=== PATIENT | male | born 1960 | race Caucasian/White ===

== ENCOUNTER 2020-04-26 13:00 | Outpatient (REF) | payer OTHER, SELFPAY ==
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
== END 2020-04-26 13:01 | disposition home or self-care (01) ==
LOC: HO.HAP 13:00
PROVIDERS: PCP Internal Medicine; Referring Provider Internal Medicine; Visit Provider Internal Medicine
DX: H90.A11 Conductive hearing loss, unilateral, right ear with restricted hearing on the contralateral side (principal); H69.93 Unspecified Eustachian tube disorder, bilateral
CPT/HCPCS: 92590; V5275

== ENCOUNTER 2020-04-28 11:31 | Outpatient (REF) | payer OTHER, SELFPAY | END 2020-04-28 11:32 | disposition home or self-care (01) | LOC: HO.LAB 11:31 | PROVIDERS: Visit Provider Internal Medicine | DX: Z20.828 Contact with and (suspected) exposure to other viral communicable diseases (principal) | CPT/HCPCS: C9803; U0003 ==

== ENCOUNTER 2020-05-27 14:33 | Outpatient (REF) | payer OTHER, SELFPAY | END 2020-05-27 14:34 | disposition home or self-care (01) | LOC: HO.HAP 14:33 | PROVIDERS: Visit Provider Internal Medicine | DX: Z46.1 Encounter for fitting and adjustment of hearing aid (principal); H90.3 Sensorineural hearing loss, bilateral | CPT/HCPCS: V5011; V5020; V5241; V5256 ==

== ENCOUNTER 2020-07-28 14:10 | Outpatient (REF) | payer OTHER, SELFPAY | END 2020-07-28 14:11 | disposition home or self-care (01) | LOC: HO.LNP 14:10 | PROVIDERS: Visit Provider Hospitalist | DX: R30.0 Dysuria (principal) | CPT/HCPCS: 87086; 87147 ==

== ENCOUNTER 2020-10-18 12:00 | Outpatient (RCR) | payer OTHER, SELFPAY ==
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
--- NOTE | 2020-10-25 14:54 | MHC.PT.DC ---
[facility] [place] Office [place] Office [address] Zuri Garcia 140 [facility] [phone] F: [phone] F: [phone] F: [phone] F: [phone] Physical Therapy Discharge Report Diagnosis: Pain in the left hip and bilateral knees and lower back Date of Surgery: Date of Evaluation: 08/16/20 Date of Discharge: 10/25/20 Treatments to Date: 8 Cancellations to Date: 1 No Shows to Date: 0 Discharge Status: Improved Function Independent with HEP Discharge Summary: Pt demonstrates compliance and understanding of HEP through teach back and completing exercise without cuing. Pt able to complete HEP without increase in pain/symptoms. Electronically signed by: Bonnie Macedo PT Please sign and return to therapist. Thank you for your referral.
== END 2020-10-25 14:54 | disposition home or self-care (01) ==
LOC: HO.PT 12:00
PROVIDERS: PCP Internal Medicine; Visit Provider Internal Medicine
DX: M25.561 Pain in right knee (principal); M25.551 Pain in right hip; M25.552 Pain in left hip
CPT/HCPCS: 97110; 97112; 97140; 97162; 97530

== ENCOUNTER 2021-05-08 10:54 | Outpatient (REF) | payer OTHER, SELFPAY ==
--- NOTE | ~2021-05-08 | XR_ITS ---
EXAMINATION: XR ELBOW, LEFT CLINICAL INFORMATION: Pain left elbow COMPARISON: None TECHNIQUE: AP, lateral, and oblique views of the left elbow. FINDINGS: There is a small olecranon spur and borderline lateral epicondylar spur. Tiny spur also noted from the coronoid process. There is no joint narrowing or erosive change. No capsular effusion, fracture, dislocation, or destructive process. XR/XR elbow LT 2V IMPRESSION: 1. Small olecranon spur. 2. Borderline spurring lateral epicondyle and coronoid process.
--- NOTE | ~2021-05-08 | XR_ITS ---
EXAMINATION: XR KNEE, RIGHT CLINICAL INFORMATION: Pain COMPARISON: Radiographs right femur 03/08/2020 TECHNIQUE: Four views of the right knee. FINDINGS: No fracture, dislocation, destructive process. No joint narrowing or erosive change or chondrocalcinosis. No suprapatellar effusion. Bony mineralization normal. Axial view patella shows no lateralization or tilting. XR/XR knee RT 3V IMPRESSION: Unremarkable right knee.
== END 2021-05-08 10:55 | disposition home or self-care (01) ==
LOC: HO.XRAY 10:54
PROVIDERS: Visit Provider Nurse Practitioner Family
DX: M25.522 Pain in left elbow (principal); M25.561 Pain in right knee
CPT/HCPCS: 73070; 73562

== ENCOUNTER 2021-05-17 13:40 | Outpatient (RCR) | payer OTHER, SELFPAY ==
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
--- NOTE | 2021-05-31 15:24 | MHC.PT.DC ---
[facility] [place] Office [place] Office [place] Office [address] [phone] F: [phone] F: [phone] F: [phone] F: [phone] Physical Therapy Discharge Report Diagnosis: pain in R knee Date of Surgery: n/a Date of Evaluation: 05/17/21 Date of Discharge: 05/31/21 Treatments to Date: 1 Cancellations to Date: 2 No Shows to Date: 3 Discharge Status: Visit Non-compliance Discharge Summary: Pt has failed to comply with [facility] [place] and no showed/cancelled all appointments since the evaluation. Pt current status unknown at this time. Electronically signed by: Manju Marquez PT, DPT, ATC Please sign and return to therapist. Thank you for your referral.
== END 2021-05-31 15:25 | disposition home or self-care (01) ==
LOC: HO.PT 13:40
PROVIDERS: Visit Provider Nurse Practitioner Family
DX: M25.561 Pain in right knee (principal)
CPT/HCPCS: 97110; 97162

== ENCOUNTER 2021-08-02 05:59 | Outpatient (REF) | payer OTHER, SELFPAY | END 2021-08-02 06:00 | disposition home or self-care (01) | LOC: HO.HOSX 05:59 | PROVIDERS: Visit Provider Physician Assistant | DX: M77.8 Other enthesopathies, not elsewhere classified (principal) | CPT/HCPCS: 99202 ==

== ENCOUNTER 2022-04-30 10:55 | Emergency (ER) | payer OTHER, SELFPAY ==
[2022-04-30 10:58] VITALS: BP 154/72; PULSE 70; RESP 18; TEMP 36.7; O2SAT 96; BMI 26.6
--- NOTE | 2022-04-30 11:08 | ED_ITS ---
HPI - General Adult General Chief complaint: General Medical Stated complaint: sore throat headache abd cramps Time Seen by Provider: 04/30/22 11:08 Source: patient Mode of arrival: ambulatory Limitations: no limitations History of Present Illness HPI narrative: Patient is a 61 year old assigned male/ at with a history of blindness presenting to the emergency department today with a cough. Patient states that he has had a cough for the last couple of days and his roommate is sick. Patient denies any dizziness, lightheadedness, abdominal pain, nausea, vomiting, fever, chills, blurry vision, double vision, loss of vision, chest pain, difficulty breathing, shortness of breath, back pain, night sweats, pain with urination, increased urinary frequency, increased urinary urgency, blood in his urine or stool, syncope or a near syncopal episode, recent trauma or falls, bowel incontinence, bladder incontinence, bowel retention, bladder retention, or any other complaints at this time. Onset (ago): day(s) Severity: mild Severity scale (1-10): 2 Relieving factors: none Exacerbating factors: none Associated symptoms: cough Treatments prior to arrival: none Related Data Previous Rx's Medication Instructions Recorded nicotine 7 mg/24 hr daily 1 patch transdermal Q24H 14 days 08/22/20 transdermal patch #14 ea diclofenac sodium 1 % topical gel 2 g topical QID PRN pain #100 grams 04/21/21 (Arthritis Pain (diclofenac)) nicotine 14 mg/24 hr daily 1 patch transdermal DAILY 28 days 04/23/21 transdermal patch #28 ea Allergies Allergy/AdvReac Type Severity Reaction Status Date / Time No Known Allergies Allergy Verified 08/02/21 09:33 [No Known Allergies*] Review of Systems Constitutional: Constitutional: Reports no additional constitutional complaints, Denies chills, Denies fever(s) and Denies night sweats Eyes: Eyes: Reports no additional eye complaints, Denies blurry vision, Denies change in vision, Denies diplopia, Denies eye discharge, Denies loss of vision and Denies eye pain ENT: Denies dizziness Cardiovascular: Cardiovascular: Reports no additional cardiovascular complaints, Denies chest pain, Denies lightheadedness, Denies Loss of Consciousness and Denies dyspnea Respiratory: Respiratory: Reports no additional respiratory complaints, Reports cough and Denies dyspnea Gastrointestinal: Gastrointestinal: Reports no additional gastrointestinal complaints, Denies abdominal pain, Denies melena, Denies hematochezia, Denies change in bowel habits and Denies change in stool character Genitourinary: Genitourinary: Reports no additional male genitourinary complaints, Denies hematuria, Denies oliguria, Denies difficulty urinating, Denies dysuria, Denies urinary frequency, Denies urinary hesitancy, Denies urinary incontinence and Denies urinary urgency Musculoskeletal: Musculoskeletal: Reports no additional musculoskeletal complaints, Denies numbness and Denies tingling Neurologic: Denies dizziness, Denies loss of vision, Denies numbness and Denies tingling Psychiatric: Psychiatric: Reports no additional psychiatric complaints Endocrine: Endocrine: Reports no additional endocrine complaints Hematologic/Lymphatic: Hematologic/Lymphatic: Reports no additional hematologic/lymphatic complaints Allergic/Immunologic: Allergic/Immunologic: Reports no additional allergic/immunologic complaints PMFSH Past Medical History Attestation statement: The following information was validated with the patient. Source: old records reviewed Medical History Blind Dyslipidemia Encounter for smoking cessation counseling Essential hypertension Hip pain Knee pain Vertigo Social History Social History Housing: Apartment Patient Tobacco Use Status: Former Tobacco user Cigarettes Per Day: 10 Advance Directives: Yes Advance Directives Information Provided: Yes Advance Directives on File: No Current occupational status: disabled Physical Exam ED Vital Signs: Vital Signs - 24 hr 04/30/22 10:58 Temperature 98.1 F Pulse Rate 70 Respiratory Rate 18 Blood Pressure 154/72 H Pulse Oximetry 96 Oxygen Delivery Method Room Air BMI result Body Mass Index 26.6 Const General: cooperative, no acute distress, alert and awake Nutritional Appearance: well nourished Orientation/consciousness: patient oriented x3 Limitations: no limitations HENMT Head: Yes normal to inspection and Yes atraumatic Ears: hearing grossly normal bilaterally and external ears normal General nose exam: Normal external nose present, no nasal discharge noted and no epistaxis Face and sinus: Yes normal facial exam, No abrasion and No laceration Mouth: Normal oral and palatal mucosa present, no drooling and no muffled voice Eyes General: appearance normal, both eyes and all related structures Periorbital: periorbital findings normal Eyelids: Yes eyelids normal Conjunctivae: conjunctivae normal EOM: EOMs intact bilaterally Neck Neck: Yes normal visual inspection, Yes full ROM and Yes no lymphadenopathy Chest Chest palpation & inspection: normal inspection of the chest Resp Effort & Inspection: normal respiratory effort and able to speak in complete sentences Auscultation: clear to auscultation bilaterally Cardio Rate: regular rate Rhythm: regular rhythm GI Inspection: Yes normal to inspection Neuro General: patient oriented x3 and moves all extremities Cognition (Neuro): normal cognition Motor exam (neuro): 5/5 motor strength present throughout Sensory Exam: Normal double simultaneous stimulation for sensation Coordination: [id number] test normal Extrem General: Yes normal to inspection, Yes full ROM and Yes capillary refill normal Psych Appearance: grossly normal Mental Status: mental status grossly normal Affect: normal affect Attitude: cooperative Thought process: Normal thought process present Thought content: Normal thought content present Insight: Good insight present (Psych) Medical Decision Making MDM Narrative Medical decision making narrative: Patient is a 61 year old assigned male at with a history of blindness presenting to the emergency department today with a cough. Patient's physical exam was unremarkable. Patient's rapid COVID-19 test was positive. I explained my physical exam findings as well as all test results to the patient. I answered all questions asked by the patient. I stressed the importance of the patient taking his medication as prescribed. I stressed the importance of the patient following up with his primary care provider. I stressed the importance of the patient returning to the emergency department immediately if his symptoms were to worsen or if he were to develop any dizziness, shortness of breath, difficulty breathing, chest pain, blurry vision, loss of vision, nausea, vomiting, abdominal pain, fever, chills, back pain, or any other complaints. Patient verbalized agreement and understanding with this treatment plan and discharge. Medical Records Medical records reviewed: Yes I reviewed the patient's medical records. Lab Data Lab results reviewed: Yes I reviewed the patient's lab results. Labs: Lab Results 04/30/22 Range/Units 11:13 Influenza Type A (PCR) NEGATIVE (Negative) Influenza Type B (PCR) NEGATIVE (Negative) RSV RNA Qual (PCR) NEGATIVE (Negative) SARS-CoV-2 RNA (RT-PCR) POSITIVE A (Negative) Discharge Plan Discharge Clinical Impression: COVID-19 Patient Disposition: Home, Self-Care Instructions: COVID-19 (Coronavirus Disease 2019) (ED) Additional Instructions: Follow up with your primary care provider. Return to the emergency department immediately if your symptoms worsen or if you develop any dizziness, shortness of breath, difficulty breathing, chest pain, blurry vision, loss of vision, nausea, vomiting, abdominal pain, fever, chills, back pain, or any other complaints. Prescriptions: No Action nicotine 14 mg/24 hr patch 24 hour 1 patch transdermal DAILY 28 Days Qty: 28 0RF nicotine 7 mg/24 hr patch 24 hour 1 patch transdermal Q24H 14 Days Qty: 14 1RF diclofenac sodium [Arthritis Pain (diclofenac)] 1 % gel 2 g topical QID PRN (Reason: pain) Qty: 100 0RF Rx Instructions: apply to single elbow, wrist or hand; for hand includes palm/fingers/back of hand Referrals: Concha Garrett MD [Primary Care Provider] - Interventions: ED Discharge Assessment Last Done: 04/30/22 12:27 Print Language: Maltese
--- OUTSIDE RECORDS SUMMARY | 2022-04-30 11:18 | XMS_ITS | Continuity of Care Document ---
:1960 Author Organization [facility] Address [address] [place] [address]- Care Team Providers Name Role Phone Osiel Billingsley MD, Klarissa Kaur Primary Care Physician [place] [facility] [place]/19[place] - 01/19/[address] [address]- [facility] Discharge Disposition: A-D/C Home Attending Physician: Tiana Llamas MD Admitting Physician: Tiana Llamas MD Referring Physician: Not on Staff, Referring MD Allergies, Adverse Reactions, Alerts Substance Reaction Severity Status NKA Active Vital Signs Most recent to oldest [Reference Range]: 1 2 Oxygen Saturation [94-100 %] 98 % (01/19/20 2:01 PM) Pulse Rate [55-90 bpm] 65 bpm (01/19/20 2:01 PM) Blood Pressure [90-138/55-84 mm Hg] 133/75 mm Hg (01/19/20 2:01 PM) Respiratory Rate [16-30 br/min] 20 br/min 18 br/mi n (01/19/20 2:47 PM) (01/19/20 2:01 PM) Temperature [96.8-100.4 DegF] 98.3 DegF (01/19/20 2:01 PM) Mode of Delivery (Oxygen) Room air (01/19/20 2:01 PM) Blood pressure sites Arm, left (01/19/20 2:01 PM) Temperature Route Oral (01/19/20 2:01 PM)
[2022-04-30 11:55] LABS: Influenza A PCR NEGATIVE (Negative); Influenza B PCR NEGATIVE (Negative); Resp Syncy Virus RNA Qual PCR NEGATIVE (Negative); SARS COV2 PCR INHOUSE POSITIVE (Negative)
== END 2022-04-30 12:27 | disposition home or self-care (01) ==
PROVIDERS: Emergency Provider Emergency Medicine; PCP Internal Medicine
DX: U07.1 COVID-19 (principal)
CPT/HCPCS: 0241U; 99282; 99283

== ENCOUNTER 2022-11-20 11:23 | Outpatient (REF) | payer OTHER, SELFPAY ==
[2022-11-20 12:33] LABS: Alanine Aminotransferase 20 U/L (0-40); Albumin Level 4.4 g/dL (3.5-5.0); Alkaline Phosphatase 96 U/L (39-117); Anion Gap 13 (12-20); Aspartate Amino Transferase 18 U/L (5-37); Bilirubin Total 1.1 mg/dL (0.0-1.0); Blood Urea Nitrogen 13 mg/dL (9-16); Calcium 9.3 mg/dL (8.4-10.2); Carbon Dioxide 30 mmol/L (22-29); Chloride 101 mmol/L (96-108); Cholesterol 205 mg/dL; Estimated Glomerular Filt Rate > 60; Glucose Fasting 88 mg/dL (60-99); HDL Cholesterol 40 mg/dL; LDL Cholesterol Calculated 139 mg/dl; Potassium 4.2 mmol/L (3.3-5.1); Sodium 140 mmol/L (135-145); Total Protein 7.7 g/dL (6.5-8.0); Triglycerides 130 mg/dL
[2022-11-20 12:48] LABS: Vitamin D 25-OH Total 31.1 ng/mL (>30)
[2022-11-20 12:59] LABS: Appearance Urine Clear; Color Urine Yellow; Glucose Urine UA Negative (Negative); Leukocyte Esterase Urine Negative (Negative); Nitrite Urine Negative (Negative); Specific Gravity - Urine 1.015 (1.005-1.025); Urine Blood Negative (Negative); Urine Ketones Negative (Negative); Urine Protein Negative (Neg-Trace)
== END 2022-11-20 11:24 | disposition home or self-care (01) ==
LOC: HO.LAB 11:23
PROVIDERS: PCP Internal Medicine; Visit Provider Internal Medicine
DX: E55.9 Vitamin D deficiency, unspecified (principal); I10 Essential (primary) hypertension; E78.5 Hyperlipidemia, unspecified; R30.0 Dysuria; R32 Unspecified urinary incontinence; R39.9 Unspecified symptoms and signs involving the genitourinary system
CPT/HCPCS: 36415; 80053; 80061; 81003; 82306

== ENCOUNTER 2023-03-20 11:18 | Outpatient (REF) | payer OTHER, SELFPAY | END 2023-03-20 11:19 | disposition home or self-care (01) | LOC: HO.LAB 11:18 | PROVIDERS: PCP Internal Medicine; Visit Provider Internal Medicine | DX: R39.9 Unspecified symptoms and signs involving the genitourinary system (principal) | CPT/HCPCS: 81001; 81003; 87086 ==

== ENCOUNTER 2023-07-02 09:58 | Outpatient (AMB) | payer OTHER, SELFPAY ==
[2023-07-02 10:07] VITALS: BP 160/102; BMI 27.1
--- NOTE | 2023-07-02 10:07 | MHC.PC.OV ---
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 Accompanied by: Self / Same As Patient Allergies No Known Allergies [No Known Allergies*] Allergy (Verified 07/02/23 10:20) Medication List - Last Reconciled 07/02/23 by Concha Billingsley MD atorvastatin 20 mg PO BEDTIME 90 days blood pressure monitor As directed lidocaine 4% (Aspercreme (lidocaine)) 1 patch topical DAILY PRN 30 days lisinopril 20 mg PO DAILY 90 days methadone 90 mg PO DAILY nicotine 1 patch transdermal DAILY 28 days nicotine 1 patch transdermal Q24H 14 days Tobacco use date assessed: 07/02/23 Dental Screening Dental Screen Date: 07/02/23 Did you have a dental visit in the last 12 months?: Yes Did you have a dental problem in the last 6 months where you did not have access to dental care?: No Was dental information given to patient?: Patient has dentist HPI HPI Comments History of Present Illness Details This is a 62-year-old male that comes for his physical exam. 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 Last colonoscopy was at 50 years old and was normal as per patient. Blood pressure elevated today and will be recheck in 3 weeks by nurse navigator. He did not took his lisinopril today. Last cholesterol was elevated and this will be repeated. No chest pain or shortness of breath. Complains of urinary incontinence and polyuria. Also has left hand pain. [facility] Medical History Encounter for smoking cessation counseling Blind Vertigo Dyslipidemia Essential hypertension Hip pain Knee pain Surgical History History of tooth extraction Family History Mother Hypertension Diabetes Father Diabetes Family/Other Substance use disorder Mental health disorder Social History Housing: Apartment Alcohol intake: current Alcohol intake frequency: holidays/special occasions only Alcohol type: beer Patient Tobacco Use Status: Current everyday Tobacco user Tobacco use type: Cigarette Cigarettes Per Day: 7 e-Cigarette/Vaping Use: Never Used Second Hand Smoke Exposure: No service: No Current occupational status: disabled Cognitive needs: Yes Hearing needs: No Vision needs: No Questionnaire PHQ-9 Over the last 2 weeks, how often have you been bothered by any of the following problems? 1. Little interest or pleasure in doing things: not at all 2. Feeling down, depressed, or hopeless: not at all 3. Trouble falling or staying asleep, or sleeping too much: not at all 4. Feeling tired or having little energy: not at all 5. Poor appetite or overeating: not at all 6. Feeling bad about yourself - or that you are a failure or have let yourself or your family down: not at all 7. Trouble concentrating on things, such as reading the newspaper or watching television: not at all 8. Moving or speaking so slowly that other people could have noticed. Or the opposite - being so fidgety or restless that you have been moving around a lot more than usual: not at all 9. Thoughts that you would be better off or of hurting yourself in some way: not at all Total score: 0 Depression Screening Interpretation: Negative Depression Screening Done: Yes 00911 - PHQ-9 Billing: Yes Source: Developed by Drs. Lyle Moreira, Lorena Foster, Yoni Luther and colleagues, with an educational marija from [employer]. Thrive Questionnaire Date Thrive assessed: 07/02/23 I am a: Patient What is your living situation today?: I have a steady place to live Within the past 12 months, did the food you bought not last and you didn't have the money to get more?: Never true Within the past 12 months, did you worry whether your food would run out before you got money to buy more?: Never true Do you have trouble paying for medicines?: No Do you have trouble getting transportation to medical appointments?: No Do you have trouble paying your heating and electricity bill?: No Do you have trouble taking care of your child, family member or friend?: No Do you have trouble with day-to-day activities such as bathing, preparing meals, shopping, managing finances, etc.?: Yes Are you currently unemployed and looking for a job?: No Are you interested in more education?: No Please select the resources that you would like help with: None Currently or been in a relationship where the following occur: no concerns reported THRIVE Score: 0 AUDIT C Alcohol Use Questionnaire (AUDIT-C) 1. How often do you have a drink containing alcohol?: 2-4 times a month 2. How many drinks containing alcohol do you have on a typical day when you are drinking?: 1 or 2 3. How often do you have six or more drinks on one occasion?: Never Total Score: 2 PAVEL-7 AMB Questionnaire PAVEL-7 Date PAVEL - 7 assessed: 07/02/23 Feeling nervous, anxious, or on edge: 0 = Not at all Not being able to stop or control worryin = Not at all Worrying too much about different things: 0 = Not at all Trouble relaxin = Not at all Being so restless that it is hard to sit still: 0 = Not at all Becoming easily annoyed or irritable: 0 = Not at all Feeling afraid as if something awful might happen: 0 = Not at all Total PAVEL-7 score (0-4 normal; 5-9 mild; 10-14 moderate; 15-21 severe): 0 Source: Developed by Drs. Lyle Moreira, Lorena Foster, Yoni Luther and colleagues, with an educational marija from [employer]. PAVEL-7 Assessment Billing PAVEL-7 Assessment Tool: PAVEL-7 Assessment 30796 Review of Systems Const All systems reviewed & are unremarkable except as noted in HPI and below Eyes Reports no additional complaints, Denies change in vision and Denies other visual disturbances Card Denies chest pain at rest, Denies chest pain with activity, Denies edema, Denies irregular heart rhythm, Denies claudication, Denies dyspnea, Denies dyspnea on exertion, Denies orthopnea, Denies paroxysmal nocturnal dyspnea and Denies slow heart rate Resp Denies cough, Denies dyspnea and Denies dyspnea on exertion GI Denies abdominal pain, Denies change in bowel habits, Denies excessive flatus, Denies nausea and Denies vomiting Denies urinary hesitancy, Reports urinary incontinence and Denies urinary urgency Musc Denies abnormal gait, Denies atrophy, Denies deformity, Reports arthralgias and Denies limited range of motion Skin/Breast Denies bleeding lesions, Denies changing lesions and Denies rash Neuro Denies abnormal gait, Denies behavioral changes, Denies confusion and Denies lack of coordination Psych Denies behavioral changes and Denies confusion Physical exam (Primary Care) Vital Signs: Last Vital Signs BP 160/102 H 07/02/23 10:07 BMI result Body Mass Index 27.1 Tobacco/Smoking Status: Tobacco use Status Tobacco use date assessed 07/02/23 07/02/23 10:14 Patient Tobacco Use Status Current everyday Tobacco 07/02/23 10:14 Tobacco use type Cigarette 07/02/23 10:14 e-Cigarette/Vaping Use Never Used 07/02/23 10:14 PHQ-9: PHQ-9 Score PHQ-9: Total score 0 07/02/23 10:14 Depression Screening Interpretation: Negative Thrive Assessment: Date of Thrive Assessment Date Thrive assessed 07/02/23 07/02/23 10:14 Currently or been in a relationship where the following occur: no concerns reported Const General: No confusion Orientation/consciousness: patient oriented x3 and No confusion HENMT Other: left facial paralysis chronic Eyes Other: bilateral corneal opacity Neck Neck: Yes normal visual inspection and Yes supple Resp Effort & Inspection: normal respiratory effort Auscultation: clear to auscultation bilaterally Cardio Jugular venous distension: no JVD Rate: regular rate Rhythm: regular rhythm Heart sounds: S1 normal heart sound present and S2 normal heart sound present GI Inspection: Yes normal to inspection Palpation (GI): Soft to palpation and nontender Auscultation: normal bowel sounds Skin General skin exam: no rashes or lesions noted Neuro General: patient oriented x3, no focal motor deficits and No confusion Extrem General: Yes full ROM Office Procedures Flu Questionnaire Does the patient have a severe egg allergy?: No Immunizations flu vacc [id number] 6mos up(PF) 60 mcg(15 mcgx4)/0.5 mL IM syringe Performing Provider: Concha Billingsley MD [facility] Documented (not given) by: BUBBA Charles on 07/02/23 10:15 Reason Not Given: Patient Refused Assessment and Plan Assessment & Plan (1) Physical exam: Code(s): Z00.00 - Encounter for general adult medical examination without abnormal findings Plan: Repeat in a year. Orders: Orders PSA,Total (Free>4and<10) Today Z12.5 - Encounter for screening for malignant neoplasm of prostate Lipid Panel Today E78.5 - Hyperlipidemia, unspecified XR hand LT 2V Today M79.642 - Pain in left hand T Spot TB Today Z11.1 - Encounter for screening for respiratory tuberculosis Comprehensive Eads. Panel Fast Today Z00.00 - Encounter for general adult medical examination without abnormal findings Influenza [id number] Immunization Today Z23 - Encounter for immunization Referrals Open Access Screening Colonoscopy Referral Z12.11 - Encounter for screening for malignant neoplasm of colon Orthopedics Referral M79.642 - Pain in left hand Urology Referral R32 - Unspecified urinary incontinence Medications: New oxybutynin chloride ER 10 mg PO DAILY 90 days 90 tabs 0RF R32 - Unspecified urinary incontinence Refilled lisinopril 20 mg PO DAILY 90 days 90 tabs 1RF Coding Level of Care Code Est Pt Prev Care 40-64y(38607) Diagnoses Physical exam Z00.00 Additional Codes PAVEL-7 Assessment Billing - PAVEL-7 Assessment Tool: PAVEL-7 Assessment 04557 ([id number]) Time Spent (min) 33
== END 2023-07-02 10:35 | disposition home or self-care (01) ==
PROVIDERS: Visit Provider Internal Medicine
DX: Z00.00 Encounter for general adult medical examination without abnormal findings (principal)
CPT/HCPCS: 99396

== ENCOUNTER 2023-07-12 08:51 | Outpatient (REF) | payer OTHER, SELFPAY ==
[2023-07-12 10:22] LABS: Appearance Urine Cloudy; Color Urine Yellow; Glucose Urine UA Negative (Negative); Leukocyte Esterase Urine Moderate (2+) (Negative); Nitrite Urine Negative (Negative); PH 6.5 (5.0-9.0); Specific Gravity - Urine 1.015 (1.005-1.025); UMIC TRIGGER UACC YES; Urine Blood Large (3+) (Negative); Urine Ketones Negative (Negative); Urine Protein >=1000 (4+) mg/dL (Neg-Trace)
[2023-07-12 10:42] LABS: Alanine Aminotransferase 15 U/L (0-40); Albumin Level 4.2 g/dL (3.5-5.0); Alkaline Phosphatase 88 U/L (39-117); Anion Gap 12 (12-20); Aspartate Amino Transferase 13 U/L (5-37); Bilirubin Total 0.8 mg/dL (0.0-1.0); Blood Urea Nitrogen 12 mg/dL (9-16); Calcium 9.2 mg/dL (8.4-10.2); Carbon Dioxide 30 mmol/L (22-29); Chloride 101 mmol/L (96-108); Cholesterol 145 mg/dL (<200); Estimated Glomerular Filt Rate > 60; Glucose Fasting 85 mg/dL (60-99); HDL Cholesterol 31 mg/dL (>40); LDL Cholesterol Calculated 89 mg/dL (<100); Potassium 4.2 mmol/L (3.3-5.1); Sodium 139 mmol/L (135-145); Total Protein 7.4 g/dL (6.5-8.0); Triglycerides 126 mg/dL (<150)
[2023-07-12 10:57] LABS: Bacteria Urine 1+ (None Seen); RBC Urine >20 /HPF (0-2); Squamous Epithelial Cell Urine 0-2 /HPF (0-2); UACC Culture Trigger YES; WBC Urine >50 /HPF (0-5)
[2023-07-12 11:07] LABS: PSA,Total (Free>4and<10) 1.57 ng/mL (0.00-4.00)
== END 2023-07-12 08:52 | disposition home or self-care (01) ==
LOC: HO.LAB 08:51
PROVIDERS: PCP Internal Medicine; Visit Provider Internal Medicine
DX: Z00.00 Encounter for general adult medical examination without abnormal findings (principal); E78.5 Hyperlipidemia, unspecified; R30.0 Dysuria; R39.9 Unspecified symptoms and signs involving the genitourinary system; Z11.1 Encounter for screening for respiratory tuberculosis; Z12.5 Encounter for screening for malignant neoplasm of prostate
CPT/HCPCS: 36415; 80053; 80061; 81001; 84153; 86481; 87086; 87088; 87186

== ENCOUNTER 2023-07-25 09:05 | Outpatient (REF) | payer OTHER, SELFPAY | END 2023-07-25 09:06 | disposition home or self-care (01) | LOC: HO.HOSX 09:05 | PROVIDERS: Visit Provider Physician Assistant | DX: Z13.89 Encounter for screening for other disorder (principal) ==

== ENCOUNTER 2023-07-25 11:08 | Outpatient (REF) | payer OTHER, SELFPAY ==
--- NOTE | ~2023-07-25 | US_ITS ---
EXAMINATION: US RETROPERITONEAL LIMITED (RENAL ONLY) CLINICAL INFORMATION: Gross hematuria. COMPARISON: CT scan abdomen and pelvis 03/08/2020 TECHNIQUE: Real-time ultrasound of the kidneys was performed. FINDINGS: RIGHT KIDNEY: 9.6 x 4.8 x 4.7 cm (SAG x AP x TRV). The kidney is normal in size, contour, and echogenicity. Renal cortical thickness is normal. No calculi or focal parenchymal lesions. No hydronephrosis. LEFT KIDNEY: 10.1 x 4.9 x 4.8 cm (SAG x AP x TRV). The kidney is normal in size, contour, and echogenicity. Renal cortical thickness is normal. No calculi or focal parenchymal lesions. No hydronephrosis. Bilateral ureteral jets are seen within the bladder. US/US renal BI IMPRESSION: Normal renal ultrasound.
== END 2023-07-25 11:09 | disposition home or self-care (01) ==
LOC: HO.US 11:08
PROVIDERS: PCP Internal Medicine; Visit Provider Internal Medicine
DX: R31.0 Gross hematuria (principal)
CPT/HCPCS: 76775

== ENCOUNTER 2023-09-02 08:39 | Outpatient (AMB) | payer OTHER, SELFPAY ==
--- NOTE | 2023-09-02 08:49 | A.OFFVIS_ITS ---
Intake Vital Signs 09/02/23 08:51 Height 5 ft 5 in Weight 162 lb BMI 27.0 Intake Visit Reasons: Newprob-Pain in the left hand Intake Note: Geo 62 year old left hand dominant male who is visually impaired presents today for an evaluation of left hand. Patient reports pain in his hand for a couple of years that he tried to ignore. States using his cane has become more difficult. He has numbness and tingling in his CMC. No other tx. Allergies No Known Allergies [No Known Allergies*] Allergy (Verified 09/02/23 08:58) HPI Newprob-Pain in the left hand HPI Details 62 yo male who presents to the office to day for left hand pain. He states the pain and contracture has been presents for over 20 years. He states used to a job that involves using the feels that it is due this. He states he is blind and left hand dominant and the hand pain is limiting his function. He states he lives alone and uses transportation. he does not friends or for support. His blindness as a result of a traumatic Head injury. he has had brain surgery-aneurysm x3 h/o AC no longer taker He has been on Methadone- 3 years -[facility] -h/o opiate use -heroin use periodically, last used a week ago, uses once a week [facility] Medical History Encounter for smoking cessation counseling Blind Vertigo Dyslipidemia Essential hypertension Hip pain Knee pain Surgical History History of tooth extraction Family History Mother Hypertension Diabetes Father Diabetes Family/Other Substance use disorder Mental health disorder Social History Housing: Apartment Alcohol intake: current Alcohol intake frequency: holidays/special occasions only Alcohol type: beer Patient Tobacco Use Status: Current everyday Tobacco user Tobacco use type: Cigarette Cigarettes Per Day: 7 e-Cigarette/Vaping Use: Never Used Second Hand Smoke Exposure: No service: No Current occupational status: disabled Cognitive needs: Yes Hearing needs: No Vision needs: No Review of Systems Const All systems reviewed & are unremarkable except as noted in HPI and below Physical Exam Vital Signs: BMI result Body Mass Index 27.0 Const General: cooperative and no acute distress Orientation/consciousness: patient oriented x3 Resp Effort & Inspection: normal respiratory effort and able to speak in complete sentences Cardio Peripheral pulses: Peripheral pulses 2+ throughout Neuro General: patient oriented x3 Extrem Other: Left hand normal to inspection. He has flexion contarcture and fibrotic strand of the flexor tendon along the small finger. Flexion contracture of about 95 degrees. NVI. Results Reviewed Results Reviewed: Xrays were obtained in the office today and personally reviewed by me of the left hand are negative for acute or chronic abnormalities. Of note, the DIP appears subluxed on the oblique view (ap) Assessment & Plan Assessment & Plan (1) Dupuytren contracture: Code(s): M72.0 - Palmar fascial fibromatosis [Dupuytren] Plan: I discussed options with him which include conservative versus surgical intervention. I explained the surgical intervention would consist of debriding the adhesions around the flexor tendon. I explained that the rehab process for this is quite lengthy as it would require extensive home therapy along with occ upational therapy to ensure that he maintains good range of motion and does not redevelop a contracture. I am a bit concerned about his heroin use he does not have proper support to go forward with a successful surgery. I did explain that it would him at increased risk of infection and if he does not follow through with his routine postop care he would have postop complications. He assures me that he is committed to this process and would like to proceed as it is limiting his daily function. I will have him see Dr. Zuñiga to discuss this further. Orders: Orders XR hand LT min 3V Today M79.642 - Pain in left hand Coding Level of Care Code New Pt Level 4 (75972) Diagnoses Dupuytren contracture M72.0
[2023-09-02 08:51] VITALS: BMI 27.0
== END 2023-09-02 09:20 | disposition home or self-care (01) ==
PROVIDERS: PCP Internal Medicine; Visit Provider Physician Assistant
DX: M72.0 Palmar fascial fibromatosis [Dupuytren] (principal); F11.10 Opioid abuse, uncomplicated
CPT/HCPCS: 99213

== ENCOUNTER 2023-09-02 09:31 | Outpatient (REF) | payer OTHER, SELFPAY ==
--- NOTE | ~2023-09-02 | XR_ITS ---
EXAMINATION: XR HAND, LEFT CLINICAL INFORMATION: Pain. COMPARISON: None available. TECHNIQUE: PA, lateral, and oblique views of the left hand. FINDINGS: The bones and soft tissues are normal. No fracture. Alignment is anatomic. The hand is held in mild flexion. Joint spaces are maintained. No erosions or soft tissue calcifications. XR/XR hand LT min 3V IMPRESSION: Normal left hand.
== END 2023-09-02 09:32 | disposition home or self-care (01) ==
LOC: HO.HOSX 09:31
PROVIDERS: Visit Provider Physician Assistant
DX: M72.0 Palmar fascial fibromatosis [Dupuytren] (principal); M79.642 Pain in left hand
CPT/HCPCS: 73130; 99212

== ENCOUNTER → 2024-07-28 12:22 | Outpatient (BNVA) | payer OTHER, SELFPAY | PROVIDERS: PCP Internal Medicine | DX: S05.01XA Injury of conjunctiva and corneal abrasion without foreign body, right eye, initial encounter (principal) | CPT/HCPCS: 99212 ==

== ENCOUNTER 2024-07-28 14:48 | Outpatient (AMB) | payer OTHER, SELFPAY ==
--- NOTE | 2024-07-28 15:09 | MHC.OFFWIV ---
Intake Vital Signs 07/28/24 15:12 Weight 171 lb BP 144/86 H Blood Pressure Location Rt brachial Position Sitting Pulse 80 Pulse Source Pulse Oximeter Pulse Oximetry (%) 97 Oxygen Delivery Method Room Air Intake Visit Reasons: EP-rt eye redness & itching Intake Note: Patient here for right eye redness, irristated which started today. Patient Tobacco Use Status: Current everyday Tobacco user Allergies No Known Allergies [No Known Allergies*] Allergy (Verified 07/28/24 15:11) Do you need a note to return to daycare/school/sports/work: No HPI HPI Comments History of Present Illness Details History of Present Illness - The patient is a 63-year-old vision impaired male presenting with foreign body sensation in the right eye. - He experienced irritation, redness, and a sensation of a foreign object in his eye since this morning, after waking up. - Home attempts to wash out the eye did not resolve these symptoms, leading him to seek immediate medical assistance. - There is no prior ophthalmological care noted, and the patient confirmed an absence of baseline vision in the right eye. Physical Exam General: Cooperative, healthy appearing, comfortable, no acute distress and well developed Orientation: Patient oriented x3 Limitations: vision impaired Head: Normal to inspection Ears: Hearing grossly normal bilaterally Nose: Normal external nose present Face and sinus: Normal facial exam Eyes: Right eye with corneal abrasion, injected, see note below for fluoroscein eye exam Neck: Normal visual inspection and Yes full ROM Respiratory: Normal respiratory effort and able to speak in complete sentences. Skin: No rashes or lesions noted Neuro: Patient oriented x3 Extremities: Normal to inspection [facility] Medical History Encounter for smoking cessation counseling Blind Vertigo Dyslipidemia Essential hypertension Hip pain Knee pain Surgical History History of tooth extraction Family History Mother Hypertension Diabetes Father Diabetes Family/Other Substance use disorder Mental health disorder Social History Housing: Apartment Alcohol intake: current Alcohol intake frequency: holidays/special occasions only Alcohol type: beer Patient Tobacco Use Status: Current everyday Tobacco user Tobacco use type: Cigarette Cigarettes Per Day: 7 e-Cigarette/Vaping Use: Never Used Second Hand Smoke Exposure: No service: No Current occupational status: disabled Cognitive needs: Yes Hearing needs: No Vision needs: No Review of Systems Const All systems reviewed & are unremarkable except as noted in HPI and below Physical Exam Vital Signs: Last Vital Signs Pulse 80 07/28/24 15:12 BP 144/86 H 07/28/24 15:12 Pulse Ox 97 07/28/24 15:12 Oxygen Delivery Method Room Air 07/28/24 15:12 Office Procedures Fluorescein eye exam Details: revealed punctuate abrasion on pupil area approx 3 o'clock Assessment & Plan Assessment & Plan (1) Corneal abrasion, right: Code(s): S05.01XA - Injury of conjunctiva and corneal abrasion without foreign body, right eye, initial encounter Qualifiers: Encounter type: initial encounter Qualified Code(s): S05.01XA - Injury of conjunctiva and corneal abrasion without foreign body, right eye, initial encounter Plan: Eye was flushed with eyeflush with some improvement in pain. A comprehensive eye examination using fluorescein dye revealed a corneal abrasion in the right eye, which was managed with irrigation and the application of topical numbing drops. Erythromycin ophthalmic ointment was prescribed to prevent infection and alleviate symptoms. Detailed instructions were provided on the application of this ointment. The patient was advised to contact an speech therapy teacher, specifically Dr. Fausitn, for further evaluation if the eye discomfort persists or if foreign material is still suspected. Follow-up recommendations and contact information for the speech therapy teacher were provided for continued care. Patient was informed and verbally consented to the use of an ambient scribe for clinic note documentation during this visit. Medications: New erythromycin Apply to left eye 4 times a day while awake 0.5 inches ophthalmic (eye) QID 3.5 grams 0RF Coding Level of Care Code Est Pt Level 4 (55590) Diagnoses Abrasion of right cornea, initial encounter S05.01XA Encounter type: initial encounter
[2024-07-28 15:12] VITALS: BP 144/86; PULSE 80; O2SAT 97
--- OUTSIDE RECORDS SUMMARY | 2024-07-28 15:50 | XMS_ITS | Encounter Summary ---
Author Organization [employer] Address [address] [place] [address] Care Team Providers Care Manager Retail Store Name Role Phone Unavailable Primary Care Provider Unavailabl e Encounter Details Date Type Department Care Team (Late st Contact Info) Description 09/04/2022 Telephone [facility] [address] [place] [address] Jonel CedeñoCLARK [address] [place] [address] Social History Tobacco Use Types Packs/Day Years Used Date Smoking Tobacco: Every Day Cigarettes 0.5 40 Smokeless Tobacco: Never Alcohol Use Standard Drinks/Week Comments Yes 0 (1 standard drink = 0.6 oz pur e alcohol) Sex and Gender Information Value Date Recorded Sex Assigned at Male 04/09/2022 10:38 AM EDT Legal Sex Male 10:38 AM EDT Gender Identity Male 04/09/2022 10:38 AM EDT Sexual Orientation Straight 04/09/2022 10 :38 AM EDT documented as of this encounter Plan of Treatment Not on file documented as of this encounter Visit Diagnoses Not on filedocumented in this encounter
--- OUTSIDE RECORDS SUMMARY | 2024-07-28 15:50 | XMS_ITS | Encounter Summary ---
Author Organization [employer] Address [address] [place] [address] Care Team Providers Care Saw Filer Name Role Phone Unavailable Primary Care Provider Unavailabl e Encounter Details Date Type Department Care Team (Late st Contact Info) Description 06/05/2022 Abstract [facility] [address] [place] [address] GalaJonel DMD [address] [place] [address] Social History Tobacco Use Types Packs/Day Years [...] Orientation Straight 04/09/2022 10 :38 AM EDT COVID-19 Exposure Response Date Recorded In the last 10 days, have yo u been in contact with someone who was confirmed or suspected to have Coronavirus/COVID-19? No / Unsure 06/05/2022 10:07 AM EST documented as of this encounter Plan of Treatment Not on file documented as of this encounter Visit Diagnoses Not on filedocumented in this encounter
--- OUTSIDE RECORDS SUMMARY | 2024-07-28 15:50 | XMS_ITS | Encounter Summary ---
Author Organization [employer] Address [address] [place] [address] Care Team Providers Care Passenger Car Cleaning Supervisor Name Role Phone Unavailable Primary Care Provider Unavailabl e Encounter Details Date Type Department Care Team (Late st Contact Info) Description 05/22/2022 Telephone [facility] [address] [place] [address] Jonel Cedeño DMD [address] [place] [address] Social History Tobacco Use Types Packs/Day Years Used Date Smoking Tobacco: Never Assessed Sex and Gender Information Value Date Recorded Sex Assigned at Male 04/09/2022 10:38 AM EDT Legal Sex Male 10:38 AM EDT Gender Identity Male 04/09/2022 10:38 AM EDT Sexual Orientation Straight 04/09/2022 10 :38 AM EDT documented as of this encounter Miscellaneous Notes * Telephone Encounter - Alice Acevedo - 05/22/2022 2:06 PM EST Patient had an appt today with Dr. Cedeño and his ride cancelled on him. He would like to rescheduleappt. documented in this encounter Plan of Treatment Not on file documented as of this encounter Visit Diagnoses Not on filedocumented in this encounter
--- OUTSIDE RECORDS SUMMARY | 2024-07-28 15:50 | XMS_ITS | Clinical Summary ---
Author Organization [employer] Address [address] [facility] [address] [place] [address] Care Team Providers Care Entry Level Manager Name Role Phone Unavailable Primary Care Provider Unavailabl e Allergies No known active allergies Medications lisinopril 20 MG tablet TAKE 1 TABLET ORALLY DAILY FOR 90 DAYS 08/15/2022 Active nicotine (Nicoderm, Step 3) 7 MG/24HR patch PLACE 1 PATCH TO SKIN EVERY 24 HOURS FOR 14 DAYS 09/23/2022 Active methadone (Dolophine) 10 MG/5ML solution Take 90 mg by mouth. Active chlorhexidine (Peridex) 0.12 % solution SWISH 15 ML IN MOUTH FOR 30 SECONDS THEN SPIT OUT TWICE A DAY AFTER MEALS 473 mL 07/08/2023 Active atorvastatin (Lipitor) 20 MG tablet TAKE ONE TABLET BY MOUTH AT BEDTIME FOR 90 DAYS 07/07/2023 Active Active Problems No known active problems Immunizations Name Administration Dates Next Due Moderna Covid-19 Vaccine 12+ 06/01/2022 Social History Tobacco Use Types Packs/Day Years Used Date Smoking Tobacco: Every Day Cigarettes 0.5 40 Smokeless Tobacco: Never Tobacco Cessation:Ready to Q uit: Not Asked; Counseling Given: Not Answered Alcohol Use Standard Drinks/Week Comments Yes 0 (1 standard drink = 0.6 oz pur e alcohol) Sex and Gender Information Value Date Recorded Sex Assigned at Male 04/09/2022 10:38 AM EDT Legal Sex Male 10:38 AM EDT Gender Identity Male 04/09/2022 10:38 AM EDT Sexual Orientation Straight 04/09/2022 10 :38 AM EDT Last Filed Vital Signs Vital Sign Reading Time Taken Comments Blood Pressure 122/64 11/07/2023 8:46 AM EDT Pulse 83 10/02/2022 1:13 PM EDT Temperature - - Respiratory Rate - - Oxygen Saturation - - Inhaled Oxygen Concentration - - Weight - - Height - - Body Mass Index - - Plan of Treatment Health Maintenance Due Date Last Done Comments Anal Pap 1960 CT Colonography 1960 Colonoscopy 1960 Colorectal Cancer Screening 1960 Dental Oral Exam 1960 Dental Prophylaxis 1960 Dental X-Ray: Bitewings 1960 Dental X-Ray: Full Mouth 1960 Depression Screening 1960 FIT DNA/Cologuard 1960 FIT 1960 FOBT 1960 HIV Screening 1960 Lipid Panel 1960 SDOH Screening 1960 Sigmoidoscopy 1960 Alcohol/Substance Use Screening 1972 Hepatitis C Screening 1978 DTaP/Tdap/Td Vaccines (1 - Tdap) 10/01/1979 Hepatitis A Vaccines (1 of 2 - Risk 2-dose series) 10/01/1979 Pneumococcal Vaccine: 50+ Ye ars (1 of 2 - PCV) 10/01/1979 Lung Cancer Screening 2010 Zoster Vaccines (1 of 2) 2010 Hepatitis B Vaccines (1 of 3 - Risk 3-dose series) 2020 COVID-19 Vaccine (2 - 2023-2 5 season) 2024 06/01/2022 Influenza Vaccine (#1) 2024 Tobacco Screening 11/24/2024 11/25/2023 RSV Patients and Pa tients Aged 60 years or older (1 - 1-dose 75+ series) 10/01/2035 HIB Vaccines Aged Out No longer eligi ble based on patient's age to complete this topic HPV Vaccines Aged Out No longer eligi ble based on patient's age to complete this topic IPV Vaccines Aged Out No longer eligi ble based on patient's age to complete this topic Meningococcal Vaccine Aged Out No som marjorie eligible based on patient's age to complete this topic RSV under 20 months Aged Out No longe r eligible based on patient's age to complete this topic Rotavirus Vaccines Aged Out No longer eligible based on patient's age to complete this topic Insurance [facility] Member Subscriber Plan / Payer (Ef fective 2022-Present) Name:Geo Whitehead Relation to Subscriber:Self Name:Geo Whitehead Payer ID:Not on file Group ID:Not on file Type:Not on file Address: [address] DENTAL - [facility]
--- OUTSIDE RECORDS SUMMARY | 2024-07-28 15:50 | XMS_ITS | Encounter Summary ---
Author Organization [employer] Address [address] [place] [address] Care Team Providers Care Special Tax Auditor Name Role Phone Unavailable Primary Care Provider Unavailabl e Encounter Details Date Type Department Care Team (Late st Contact Info) Description 07/19/2022 Abstract [facility] ADULT D[facility]AL [address] [place] [address] Jonel CedeñoCLARK [address] [place] [address] Social History Tobacco Use Types Packs/Day Years [...]
--- OUTSIDE RECORDS SUMMARY | 2024-07-28 15:50 | XMS_ITS | Encounter Summary ---
Author Organization [employer] Address [address] [facility] [address] [place] [address] Care Team Providers Care Clinical Data Management Manager Name Role Phone Unavailable Primary Care Provider Unavailabl e Reason for Visit * Reason Comments Med Refill Encounter Details Date Type Department Care Team (Late st Contact Info) Description 07/06/2023 Refill [facility] ADULT DENTAL [address] [place] [address] Tc Lopez DMD [address] [place], [place] [id number] Social History Tobacco Use Types Packs/Day Years [...] encounter Miscellaneous Notes * Telephone Encounter - Tc Lopez DMD - 07/08/2023 8:02 AM EST Approving, but needs appt for additional refills. documented in this encounter Plan of Treatment Not on file documented as of this encounter Visit Diagnoses Not on filedocumented in this encounter
--- OUTSIDE RECORDS SUMMARY | 2024-07-28 15:50 | XMS_ITS | Encounter Summary ---
Author Organization [employer] Address [address] [facility] [address] [place] [address] Care Team Providers Care Mobile Home Set Up Person Name Role Phone Unavailable Primary Care Provider Unavailabl e Reason for Visit * Reason Onset Date Comments missed appt no reminder 09/18/2023 Encounter Details Date Type Department Care Team ([facility] st Contact Info) Description 09/18/2023 Telephone [facility] ADULT DENTAL [address] [place] [address] Tc Lopez, CLARK [address] [place] [address] missed appt no reminder Social History Tobacco Use Types Packs/Day Years [...] * Telephone Encounter - Alice Acevedo - 09/18/2023 11:36 AM EDT Patient called in to check in on appt date and time and was informed that he missed his appt on 09/15. Checked the chart and verified number with patient. His phone number was changed and did no receive reminder call. Updated his number today. He would like to reschedule appt DR documented in this encounter Plan of Treatment Not on file documented as of this encounter Visit Diagnoses Not on filedocumented in this encounter
--- OUTSIDE RECORDS SUMMARY | 2024-07-28 15:50 | XMS_ITS | Encounter Summary ---
Author Organization [employer] Address [address] [facility] [address] [place] [address] Care Team Providers Care Customer Service Professional Name Role Phone Unavailable Primary Care Provider Unavailabl e Reason for Visit * Reason Onset Date Comments Appointment 07/09/2022 Patient states t hat they had their blood pressure check with provider and have the medical clearance on hand and would like to schedule appt for extractions with Dr. Cedeño Encounter Details Date Type Department Care Team (Late st Contact Info) Description 07/09/2022 Telephone [facility] ADULT DENTAL [address] [place] [address] Jonel Cedeño DMD [address] [place] [address] Appointment (Patient states that they had their blood pressure check with provider and have the medical clearance on hand and would like to schedule appt for extractions with Dr. Cedeño) Social History Tobacco Use Types Packs/Day Years [...] * Telephone Encounter - Alice Acevedo - 07/23/2022 1:27 PM EST Medical Clearance back from provider and scanned in chart. Patient looking for next appt with Dr. Cedeño for extractions DR * Telephone Encounter - Alice Acevedo - 07/09/2022 1:48 PM EST Patient states that they had their blood pressure check with provider and have the medical clearance on hand and would like to schedule appt for extractions with Dr. Cedeño documented in this encounter Plan of Treatment Not on file documented as of this encounter Visit Diagnoses Not on filedocumented in this encounter
== END 2024-07-28 15:41 | disposition home or self-care (01) ==
PROVIDERS: PCP Internal Medicine; Visit Provider Physician Assistant
DX: S05.01XA Injury of conjunctiva and corneal abrasion without foreign body, right eye, initial encounter (principal)